=== PATIENT | male | born 1970 | race African-American/Black ===

== ENCOUNTER 2024-05-09 22:09 | Emergency (ER) | payer SELFPAY ==
[~2024-05-09] VITALS: Ht 175.3 cm; Wt 82.0 kg
[2024-05-09 22:29] VITALS: O2SAT 98
[2024-05-09] MEDS ORDERED: CYCLOBENZAPRINE 10MG TABLET PO ONE (22:45)
[2024-05-09] MEDS ORDERED: IBUPROFEN 600MG TABLET PO ONE (22:45)
[2024-05-09] MEDS ORDERED: LIDOCAINE 5% PATCH TOP ONE (22:45)
[2024-05-10] MEDS: IBUPROFEN 600MG TABLET PO NR (01:00)
[2024-05-10] MEDS: CYCLOBENZAPRINE 10MG TABLET PO NR (01:00)
[2024-05-10] MEDS: LIDOCAINE 5% PATCH TOP NR (01:00)
[2024-05-10 02:45] VITALS: BP 159/98; PULSE 75; RESP 17; TEMP 36.55848; O2SAT 97
== END 2024-05-10 03:04 | disposition home or self-care (01) ==
LOC: ER 22:09
DX: S09.90XA Unspecified injury of head, initial encounter (principal); S13.9XXA Sprain of joints and ligaments of unspecified parts of neck, initial encounter; V79.49XA Driver of bus injured in collision with other motor vehicles in traffic accident, initial encounter; Y93.89 Activity, other specified; Y92.89 Other specified places as the place of occurrence of the external cause; Y99.8 Other external cause status
CPT/HCPCS: 99284